=== PATIENT | female | born 1965 | race Hispanic/Latino ===

== ENCOUNTER 2017-10-28 05:38 | Emergency (ER) | payer MEDICAID ==
[2017-10-28] MEDS ORDERED: BOOSTRIX IM ONE (08:45)
[2017-10-28] MEDS ORDERED: TETRACAINE 0.5% OU ONE (08:55)
[2017-10-28] MEDS ORDERED: FUL-GLO OP ONE (08:55)
[2017-10-28] MEDS ORDERED: XYLOCAINE 1% 20 mL INFILTRATI ONE (08:55)
[2017-10-28] MEDS ORDERED: NACL 0.9% IR ONE (08:55)
--- NOTE | 2017-10-28 09:56 | Cat Scan Report ---
CT of the orbits without contrast. History: Trauma with laceration of the eyelid. Findings: There is no evidence of fracture or other bony abnormalities. There are no fluid levels in the paranasal sinuses. The orbits are intact. There is preseptal soft tissue swelling on the left. Minimal soft tissue air is present. The globes are intact. The optic nerves and extraocular muscles are normal. No retrobulbar abnormalities are seen. Impression: Left preseptal soft tissue edema and minimal soft tissue air, consistent with the history of trauma.
[2017-10-28] MEDS ORDERED: TRIPLE ANTIBIOTIC TP ONE (10:15)
[2017-10-28] MEDS ORDERED: NORCO 5/325 PO ONE (10:17)
--- NOTE | 2017-10-28 10:22 | Emergency Department Report ---
- General Chief Complaint: Wound/Laceration Stated Complaint: LACERATION LT EYELID Time Seen by Provider: 10/28/17 09:12 Source: patient Mode of arrival: Ambulatory Limitations: No Limitations - History of Present Illness Initial Comments: pt is a 51 y/o w/f who presents for left eye lid laceration x 2 secondary to scratch by her dog, pt states dog sleep with her and she startled this am scratching her eyelid there is no change in vision no blurred visions no headache bleeding controlled by patient via direct pressure, pt does endorse previous truame 2 weeks ago with facial fractures healing previous to this injury. Onset/Timin -: hour(s) Location: other (left eyelid ) Place: home Patient Tetanus UTD: No Context: accidental Associated Symptoms: pain - Related Data Home Medications Medication Instructions Recorded Confirmed Last Taken Baclofen [Lioresal] 10 mg PO TID 05/16/15 02/07/17 1 Day Ago ~02/06/17 Dicyclomine [Bentyl] 1 tab PO QID 05/16/15 02/07/17 1 Day Ago ~02/06/17 Divalproex ER [Depakote ER] 500 mg PO HS 05/16/15 02/07/17 1 Day Ago ~02/06/17 Gabapentin [Neurontin] 300 mg PO Q8H 05/16/15 02/07/17 1 Day Ago ~02/06/17 PARoxetine [Paxil] 60 mg PO DAILY 05/16/15 02/07/17 1 Day Ago ~02/06/17 Quetiapine Fumarate [Seroquel] 3 tab PO HS 05/16/15 02/07/17 1 Day Ago ~02/06/17 Topiramate [Topamax] 100 tab PO BID 05/16/15 02/07/17 1 Day Ago ~02/06/17 levETIRAcetam [Keppra TAB] 750 mg PO BID 05/16/15 02/07/17 1 Day Ago ~02/06/17 Previous Rx's Medication Instructions Recorded Last Taken Type Butalb/Acetamin/Caff 50-325-40 1 each PO Q4H PRN #20 tablet 02/09/17 Unknown Rx [Fioricet] HYDROcodone/APAP 5-325 [[place] 1 each PO BID PRN #10 tablet 02/09/17 Unknown Rx 5-325 mg TAB] Amoxicillin/K Clav Tab [Augmentin 1 tab PO Q12HR #20 tab 10/28/17 Unknown Rx 875 mg] Bacitracin 1 applicatio OP BID #1 tube 10/28/17 Unknown Rx traMADol [Ultram 50 MG tab] 50 mg PO Q8HR PRN #20 tablet 10/28/17 Unknown Rx Allergies Allergy/AdvReac Type Severity Reaction Status Date / Time metoclopramide HCl Allergy Seizure Verified 05/16/15 04:17 [From Reglan] morphine Allergy Hives Verified 02/06/17 22:23 ED Review of Systems ROS: Stated complaint: LACERATION LT EYELID Other details as noted in HPI Constitutional: denies: chills, fever Eyes: other (eyel lid laceration) ENT: denies: ear pain, throat pain Respiratory: denies: cough, shortness of breath, wheezing Cardiovascular: denies: chest pain, palpitations Endocrine: no symptoms reported Gastrointestinal: denies: abdominal pain, nausea, diarrhea Genitourinary: denies: urgency, dysuria, discharge Musculoskeletal: denies: back pain, joint swelling, arthralgia Skin: denies: rash, lesions Neurological: denies: headache, weakness, paresthesias Psychiatric: denies: anxiety, depression Hematological/Lymphatic: denies: easy bleeding, easy bruising ED Past Medical Hx - Past Medical History Hx Hypertension: Yes Hx CVA: Yes (3 mild strokes) Hx Congestive Heart Failure: Yes Hx Diabetes: No Hx Seizures: Yes Hx Psychiatric Treatment: Yes (bipolar) Hx COPD: Yes Additional medical history: lupus, liver problems, osteoporosis - Surgical History Hx Cholecystectomy: Yes Additional Surgical History: hysterectomy, back surg 1989, gastric bypass - Social History Smoking Status: Never Smoker Substance Use Type: None - Medications Home Medications: Home Medications Medication Instructions Recorded Confirmed Last Taken Type Baclofen [Lioresal] 10 mg PO TID 05/16/15 02/07/17 1 Day Ago History ~02/06/17 Dicyclomine [Bentyl] 1 tab PO QID 05/16/15 02/07/17 1 Day Ago History ~02/06/17 Divalproex ER [Depakote ER] 500 mg PO HS 05/16/15 02/07/17 1 Day Ago History ~02/06/17 Gabapentin [Neurontin] 300 mg PO Q8H 05/16/15 02/07/17 1 Day Ago History ~02/06/17 PARoxetine [Paxil] 60 mg PO DAILY 05/16/15 02/07/17 1 Day Ago History ~02/06/17 Quetiapine Fumarate [Seroquel] 3 tab PO HS 05/16/15 02/07/17 1 Day Ago History ~02/06/17 Topiramate [Topamax] 100 tab PO BID 05/16/15 02/07/17 1 Day Ago History ~02/06/17 levETIRAcetam [Keppra TAB] 750 mg PO BID 05/16/15 02/07/17 1 Day Ago History ~02/06/17 Butalb/Acetamin/Caff 50-325-40 1 each PO Q4H PRN #20 tablet 02/09/17 Unknown Rx [Fioricet] HYDROcodone/APAP 5-325 [[place] 1 each PO BID PRN #10 tablet 02/09/17 Unknown Rx 5-325 mg TAB] Amoxicillin/K Clav Tab [Augmentin 1 tab PO Q12HR #20 tab 10/28/17 Unknown Rx 875 mg] Bacitracin 1 applicatio OP BID #1 tube 10/28/17 Unknown Rx traMADol [Ultram 50 MG tab] 50 mg PO Q8HR PRN #20 tablet 10/28/17 Unknown Rx ED Physical Exam - General Limitations: No Limitations General appearance: alert, in no apparent distress - Head Head exam: Present: normocephalic, other (multiple bruising healing abrasions no deformity ) - Eye Eye exam: Present: normal appearance, PERRL, EOMI, periorbital swelling, periorbital tenderness, other (eyelid laceraion left ). Absent: conjunctival injection Pupils: Present: normal accommodation - ENT ENT exam: Present: mucous membranes moist - Neck Neck exam: Present: normal inspection, full ROM. Absent: meningismus, lymphadenopathy - Respiratory Respiratory exam: Present: normal lung sounds bilaterally. Absent: respiratory distress - Cardiovascular Cardiovascular Exam: Present: regular rate, normal rhythm. Absent: systolic murmur, diastolic murmur, rubs, gallop - GI/Abdominal GI/Abdominal exam: Present: soft, normal bowel sounds - Rectal Rectal exam: Present: deferred - Extremities Exam Extremities exam: Present: normal inspection - Back Exam Back exam: Present: normal inspection - Neurological Exam Neurological exam: Present: alert, oriented X3, CN II-XII intact, normal gait, reflexes normal - Psychiatric Psychiatric exam: Present: normal affect, normal mood - Skin Skin exam: Present: warm, dry, intact, normal color, other (left eyelid laceration). Absent: rash ED Course Vital Signs 10/28/17 06:18 Temperature 98 F Pulse Rate 75 Respiratory 18 Rate Blood Pressure 100/58 O2 Sat by Pulse 100 Oximetry - Laceration /Wound Repair Left Eye Wound Location: face (left eyelid laceration) Wound Length (cm): 2 Wound's Depth, Shape: superficial Wound Explored: irregular dog scratch Irrigated w/ Saline (ccs): 500 Betadine Prep?: Yes Anesthesia: 1% Lidocaine Volume Anesthetic (ccs): 1 Wound Debrided: minimal Wound Repaired With: sutures Suture Size/Type: 6:0, proline Number of Sutures: 8 Layer Closure?: No Sterile Dressing Applied?: Yes Progress: lacaration anesthes with 1% lidocaine, eye with tetracaine, morgans lense for eye protection and irrigation, wound irrigated with 500 cc sterile saline, wound closed with proline 6.0 x 8 sutures, all bleeding controlled ,pt tolerated procedure with minimal distress, pt given wound care instruction eye: perrla, eomi, complet lid open closure intact , ED Medical Decision Making - Radiology Data Radiology results: report reviewed, image reviewed soft tissue injury no eye involvement as perseptal soft tissue edema and minimal soft tissue air, - Medical Decision Making pt is a 51 y/o w/f who presents for left eye lid laceration x 2 secondary to scratch by her dog, dog shots are all up to date. pt states dog sleep with her and she startled this am scratching her eyelid there is no change in vision no blurred visions no headache bleeding controlled by patient via direct pressure, pt does endorse previous truame 2 weeks ago with facial fractures healing previous to this injury. exam: multiple facial abrasion healing , left eye lid laceration irregular no bleeding superficial no globe or eye involvement vision 20/50 bilat, perrla eomi, conjunctivae well perfused, eye lid inverted , eye examined with wood lap, fluoracine no abrasion, ct orbits no eye involvement soft tissue injury , lacerations closed with 6.0 prolene, pt tolerated with minimal distress, pt has follow up pending with Maxiofacial surgery Dr. Yu and pcp in 7 days will keep appointment, plan: bacitracinoint, augmentin, tetanus given in ed, wound irrigated 500 steril saline, pt will follow up with pcp in 7 days for suture removal or return to emergency if symptoms worsen. Critical care attestation.: If time is entered above; I have spent that time in minutes in the direct care of this critically ill patient, excluding procedure time. ED Disposition Clinical Impression: Dog scratch Eyelid laceration, left Qualifiers: Encounter type: initial encounter Qualified Code(s): S01.112A - Laceration without foreign body of left eyelid and periocular area, initial encounter Disposition: TO HOME OR SELFCARE Is pt being admited?: No Does the pt Need Aspirin: No Condition: Good Instructions: Animal Bite (ED), Laceration (ED) Prescriptions: Amoxicillin/K Clav Tab [Augmentin 875 mg] 1 tab PO Q12HR #20 tab Bacitracin 1 applicatio OP BID #1 tube traMADol [Ultram 50 MG tab] 50 mg PO Q8HR PRN #20 tablet PRN Reason: Pain Referrals: PRIMARY CARE, [Primary Care Provider] - 3-5 Days Forms: Work/School Release Form(ED) Time of Disposition: 10:40
[2017-10-28 10:52] VITALS: BP 110/60
== END 2017-10-28 10:50 | disposition home or self-care (01) ==
LOC: ED 05:38
DX: S01.112A Laceration without foreign body of left eyelid and periocular area, initial encounter (principal); X58.XXXA Exposure to other specified factors, initial encounter; Y93.89 Activity, other specified; Y92.89 Other specified places as the place of occurrence of the external cause; Y99.8 Other external cause status
CPT/HCPCS: 70480; 90471; 90715; A6250

== ENCOUNTER 2019-02-21 13:10 | Emergency (ER) | payer MEDICAID ==
[2019-02-21] MEDS ORDERED: HALDOL IM ONE (13:57)
--- NOTE | 2019-02-21 14:07 | Emergency Department Report ---
ED General Adult HPI - General Chief complaint: Abdominal Pain Stated complaint: ABD PAIN Time Seen by Provider: 02/21/19 13:39 Source: patient, EMS Mode of arrival: Stretcher Limitations: No Limitations - History of Present Illness Initial comments: The patient presents to the emergency department she complains of diffuse abdominal pain. Patient states she has a chronic history of abdominal pain since her gastric bypass surgery in 2000. The patient states she has an appointment with her gastric bypass surgeon today at [address] Castillo because she cannot make it to the appointment. Patient states for the last months she's had this intermittent abdominal pain that she describes as sharp in nature with nausea and vomiting. Patient nausea and chest pain, shortness breath, or headache. -: Gradual Location: abdomen Radiation: non-radiation Severity scale (0 -10): 8 Quality: aching Consistency: constant Improves with: none Worsens with: none Associated Symptoms: denies other symptoms Treatments Prior to Arrival: none - Related Data Home Medications Medication Instructions Recorded Confirmed Last Taken Baclofen [Lioresal] 10 mg PO TID 05/16/15 02/07/17 1 Day Ago ~02/06/17 Dicyclomine [Bentyl] 1 tab PO QID 05/16/15 02/07/17 1 Day Ago ~02/06/17 Divalproex ER [Depakote ER] 500 mg PO HS 05/16/15 02/07/17 1 Day Ago ~02/06/17 Gabapentin [Neurontin] 300 mg PO Q8H 05/16/15 02/07/17 1 Day Ago ~02/06/17 PARoxetine [Paxil] 60 mg PO DAILY 05/16/15 02/07/17 1 Day Ago ~02/06/17 Quetiapine Fumarate [Seroquel] 3 tab PO HS 05/16/15 02/07/17 1 Day Ago ~02/06/17 Topiramate [Topamax] 100 tab PO BID 05/16/15 02/07/17 1 Day Ago ~02/06/17 levETIRAcetam [Keppra TAB] 750 mg PO BID 05/16/15 02/07/17 1 Day Ago ~02/06/17 Previous Rx's Medication Instructions Recorded Last Taken Type Butalb/Acetamin/Caff 50-325-40 1 each PO Q4H PRN #20 tablet 02/09/17 Unknown Rx [Fioricet] HYDROcodone/APAP 5-325 [[place] 1 each PO BID PRN #10 tablet 02/09/17 Unknown Rx 5-325 mg TAB] Amoxicillin/K Clav Tab [Augmentin 1 tab PO Q12HR #20 tab 10/28/17 Unknown Rx 875 mg] Bacitracin 1 applicatio OP BID #1 tube 10/28/17 Unknown Rx traMADol [Ultram 50 MG tab] 50 mg PO Q8HR PRN #20 tablet 10/28/17 Unknown Rx Benzonatate [Tessalon Perles] 100 mg PO Q8HR PRN #20 capsule 10/05/18 Unknown Rx Dicyclomine [Bentyl] 20 mg PO QID PRN #20 tablet 10/05/18 Unknown Rx Ferrous Sulfate [Iron 325 MG] 325 mg PO TID #30 tablet 10/05/18 Unknown Rx Nitrofurantoin Monohyd/M-Cryst 100 mg PO BID #14 capsule 10/05/18 Unknown Rx [Macrobid 100 mg Capsule] Ondansetron [Zofran Odt] 4 mg PO Q8HR PRN #20 tab.rapdis 10/05/18 Unknown Rx HYDROcodone/APAP 5-325 [[place] 1 each PO Q6HR PRN #12 tablet 02/21/19 Unknown Rx 5/325] Ondansetron [Zofran Odt] 4 mg PO Q4HR PRN #20 tab.rapdis 02/21/19 Unknown Rx Promethazine [Phenergan TAB] 25 mg PO Q6HR PRN #20 tab 02/21/19 Unknown Rx Allergies Allergy/AdvReac Type Severity Reaction Status Date / Time levofloxacin [From Levaquin] Allergy Unknown Verified 10/05/18 16:23 meperidine [From Demerol] Allergy Unknown Verified 10/05/18 16:23 metoclopramide HCl Allergy Seizure Verified 05/16/15 04:17 [From Reglan] morphine Allergy Hives Verified 02/06/17 22:23 ED Review of Systems ROS: Stated complaint: ABD PAIN Other details as noted in HPI Comment: All other systems reviewed and negative Constitutional: denies: chills, fever Eyes: denies: eye pain, eye discharge, vision change ENT: denies: ear pain, throat pain Respiratory: denies: cough, shortness of breath, wheezing Cardiovascular: denies: chest pain, palpitations Endocrine: no symptoms reported Gastrointestinal: abdominal pain. denies: nausea, diarrhea Genitourinary: denies: urgency, dysuria, discharge Musculoskeletal: denies: back pain, joint swelling, arthralgia Skin: denies: rash, lesions Neurological: denies: headache, weakness, paresthesias Psychiatric: denies: anxiety, depression Hematological/Lymphatic: denies: easy bleeding, easy bruising ED Past Medical Hx - Past Medical History Hx Hypertension: Yes Hx CVA: Yes (3 mild strokes) Hx Congestive Heart Failure: Yes Hx Diabetes: No Hx Arthritis: Yes (rheumatoid arthritis) Hx Seizures: Yes Hx Psychiatric Treatment: Yes (bipolar) Hx COPD: Yes Additional medical history: lupus, liver problems, osteoporosis, fibromyalgia, anemia - Surgical History Hx Cholecystectomy: Yes Additional Surgical History: hysterectomy, back surg 1990, gastric bypass - Social History Smoking Status: Never Smoker - Medications Home Medications: Home Medications Medication Instructions Recorded Confirmed Last Taken Type Baclofen [Lioresal] 10 mg PO TID 05/16/15 02/07/17 1 Day Ago History ~02/06/17 Dicyclomine [Bentyl] 1 tab PO QID 05/16/15 02/07/17 1 Day Ago History ~02/06/17 Divalproex ER [Depakote ER] 500 mg PO HS 05/16/15 02/07/17 1 Day Ago History ~02/06/17 Gabapentin [Neurontin] 300 mg PO Q8H 05/16/15 02/07/17 1 Day Ago History ~02/06/17 PARoxetine [Paxil] 60 mg PO DAILY 05/16/15 02/07/17 1 Day Ago History ~02/06/17 Quetiapine Fumarate [Seroquel] 3 tab PO HS 05/16/15 02/07/17 1 Day Ago History ~02/06/17 Topiramate [Topamax] 100 tab PO BID 05/16/15 02/07/17 1 Day Ago History ~02/06/17 levETIRAcetam [Keppra TAB] 750 mg PO BID 05/16/15 02/07/17 1 Day Ago History ~02/06/17 Butalb/Acetamin/Caff 50-325-40 1 each PO Q4H PRN #20 tablet 02/09/17 Unknown Rx [Fioricet] HYDROcodone/APAP 5-325 [[place] 1 each PO BID PRN #10 tablet 02/09/17 Unknown Rx 5-325 mg TAB] Amoxicillin/K Clav Tab [Augmentin 1 tab PO Q12HR #20 tab 10/28/17 Unknown Rx 875 mg] Bacitracin 1 applicatio OP BID #1 tube 10/28/17 Unknown Rx traMADol [Ultram 50 MG tab] 50 mg PO Q8HR PRN #20 tablet 10/28/17 Unknown Rx Benzonatate [Tessalon Perles] 100 mg PO Q8HR PRN #20 capsule 10/05/18 Unknown Rx Dicyclomine [Bentyl] 20 mg PO QID PRN #20 tablet 10/05/18 Unknown Rx Ferrous Sulfate [Iron 325 MG] 325 mg PO TID #30 tablet 10/05/18 Unknown Rx Nitrofurantoin Monohyd/M-Cryst 100 mg PO BID #14 capsule 10/05/18 Unknown Rx [Macrobid 100 mg Capsule] Ondansetron [Zofran Odt] 4 mg PO Q8HR PRN #20 tab.rapdis 10/05/18 Unknown Rx HYDROcodone/APAP 5-325 [[place] 1 each PO Q6HR PRN #12 tablet 02/21/19 Unknown Rx 5/325] Ondansetron [Zofran Odt] 4 mg PO Q4HR PRN #20 tab.rapdis 02/21/19 Unknown Rx Promethazine [Phenergan TAB] 25 mg PO Q6HR PRN #20 tab 02/21/19 Unknown Rx ED Physical Exam - General Limitations: No Limitations General appearance: alert, in no apparent distress - Head Head exam: Present: atraumatic, normocephalic - Eye Eye exam: Present: normal appearance, PERRL, EOMI - ENT ENT exam: Present: mucous membranes moist - Neck Neck exam: Present: normal inspection - Respiratory Respiratory exam: Present: normal lung sounds bilaterally. Absent: respiratory distress, wheezes, rales - Cardiovascular Cardiovascular Exam: Present: regular rate, normal rhythm. Absent: systolic murmur, diastolic murmur, rubs, gallop - GI/Abdominal GI/Abdominal exam: Present: soft, normal bowel sounds. Absent: distended, tenderness - Extremities Exam Extremities exam: Present: normal inspection - Back Exam Back exam: Present: normal inspection - Neurological Exam Neurological exam: Present: alert, oriented X3, CN II-XII intact. Absent: motor sensory deficit - Psychiatric Psychiatric exam: Present: normal affect, normal mood - Skin Skin exam: Present: warm, dry, intact, normal color. Absent: rash ED Course Vital Signs 02/21/19 02/21/19 02/21/19 13:18 13:25 13:30 Temperature 98.8 F Pulse Rate 80 98 H 78 Respiratory 11 L 20 17 Rate Blood Pressure 123/71 133/85 O2 Sat by Pulse 98 97 98 Oximetry 02/21/19 02/21/19 02/21/19 14:00 14:30 15:00 Temperature Pulse Rate 73 81 65 Respiratory 10 L 15 14 Rate Blood Pressure 151/100 151/96 143/78 O2 Sat by Pulse 98 99 98 Oximetry 02/21/19 15:30 Temperature Pulse Rate 69 Respiratory 14 Rate Blood Pressure 141/82 O2 Sat by Pulse 97 Oximetry ED Medical Decision Making - Lab Data Result diagrams: 02/21/19 14:11 02/21/19 14:11 Lab Results 02/21/19 02/21/19 Range/Units 14:11 14:11 WBC 5.0 (4.5-11.0) K/mm3 RBC 5.00 (3.65-5.03) M/mm3 Hgb 11.2 (10.1-14.3) gm/dl Hct 35.6 (30.3-42.9) % MCV 71 L (79-97) fl MCH 22 L (28-32) pg MCHC 32 (30-34) % RDW 22.0 H (13.2-15.2) % Plt Count 351 (140-440) K/mm3 Lymph % (Auto) 21.4 (13.4-35.0) % Rich % (Auto) 8.2 H (0.0-7.3) % Eos % (Auto) 1.6 (0.0-4.3) % Baso % (Auto) 1.1 (0.0-1.8) % Lymph # 1.1 L (1.2-5.4) K/mm3 Rich # 0.4 (0.0-0.8) K/mm3 Eos # 0.1 (0.0-0.4) K/mm3 Baso # 0.1 (0.0-0.1) K/mm3 Seg Neutrophils % 67.7 (40.0-70.0) % Seg Neutrophils # 3.4 (1.8-7.7) K/mm3 Sodium 141 (137-145) mmol/L Potassium 4.6 (3.6-5.0) mmol/L Chloride 103.4 (98-107) mmol/L Carbon Dioxide 28 (22-30) mmol/L Anion Gap 14 mmol/L BUN 10 (7-17) mg/dL Creatinine 0.7 (0.7-1.2) mg/dL Estimated GFR > 60 ml/min BUN/Creatinine Ratio 14 % Glucose 100 (65-100) mg/dL Calcium 8.9 (8.4-10.2) mg/dL Total Bilirubin 0.30 (0.1-1.2) mg/dL AST 18 (5-40) units/L ALT 11 (7-56) units/L Alkaline Phosphatase 96 (35-129) units/L Total Protein 6.2 L (6.3-8.2) g/dL Albumin 3.6 L (3.9-5) g/dL Albumin/Globulin Ratio 1.4 % Lipase 70 H (13-60) units/L - Radiology Data Radiology results: report reviewed - Medical Decision Making Discussed results with the patient Patient states her symptoms are greatly improve after the Haldol especially her nausea and vomiting Critical care attestation.: If time is entered above; I have spent that time in minutes in the direct care of this critically ill patient, excluding procedure time. ED Disposition Clinical Impression: Abdominal pain, Nausea & vomiting Disposition: TO HOME OR SELFCARE Is pt being admited?: No Does the pt Need Aspirin: No Condition: Stable Instructions: Abdominal Pain (ED), Acute Nausea and Vomiting (ED) Additional Instructions: return if worse Referrals: [facility] [Other] - 3-5 Days [facility] [Provider Group] - 3-5 Days [facility] [Provider Group] - 3-5 Days Time of Disposition: 16:01
[2019-02-21 14:35] LABS: Basophils # (Auto) 0.1 K/mm3 (0.0-0.1); Basophils % (Auto) 1.1 % (0.0-1.8); Eosinophils # (Auto) 0.1 K/mm3 (0.0-0.4); Eosinophils % (Auto) 1.6 % (0.0-4.3); Hematocrit 35.6 % (30.3-42.9); Hemoglobin 11.2 gm/dl (10.1-14.3); Lymphocytes # (Auto) 1.1 K/mm3 (1.2-5.4); Lymphocytes % (Auto) 21.4 % (13.4-35.0); Mean Corpuscular HGB Conc 32 % (30-34); Mean Corpuscular Volume 71 fl (79-97); Monocytes # (Auto) 0.4 K/mm3 (0.0-0.8); Monocytes % (Auto) 8.2 % (0.0-7.3); Platelet Count 351 K/mm3 (140-440)
[2019-02-21 14:46] LABS: Alanine Aminotransferase 11 units/L (7-56); Albumin 3.6 g/dL (3.9-5); BUN/Creatinine Ratio 14; Blood Urea Nitrogen 10 mg/dL (7-17); Calcium 8.9 mg/dL (8.4-10.2); Hemolysis Index 3
--- NOTE | 2019-02-21 15:07 | XRay Report ---
ABDOMINAL SERIES: History: Abdominal pain. Erect chest film shows no acute or significant changes involving the heart or lung salas. There is no evidence of free air beneath the diaphragms. The gas pattern within the abdomen is unremarkable. There is no evidence of bowel dilatation, significant air-fluid levels, or masses. Organ shadows are unremarkable. Cholecystectomy changes are noted. IMPRESSION: Abdominal series within normal limits.
[2019-02-21 16:19] VITALS: BP 132/89
== END 2019-02-21 16:33 | disposition home or self-care (01) ==
LOC: ED 13:10
DX: R10.84 Generalized abdominal pain (principal); R11.2 Nausea with vomiting, unspecified; I11.0 Hypertensive heart disease with heart failure; I50.9 Heart failure, unspecified; F31.9 Bipolar disorder, unspecified; J44.9 Chronic obstructive pulmonary disease, unspecified; Z90.49 Acquired absence of other specified parts of digestive tract
CPT/HCPCS: 36415; 74022; 80053; 83690; 85025; 96372; 99284; J1630